=== PATIENT | female | born 1990 | race African-American/Black ===

== ENCOUNTER 2017-05-20 22:38 | Outpatient (CLI) | payer SELFPAY ==
[2017-05-20 23:22] LABS: APPEARANCE,URINE SLIGHTLY-CLOUDY; BILIRUBIN,URINE NEGATIVE (NEGATIVE); COLOR,URINE YELLOW; GLUCOSE, URINE NEGATIVE (NEGATIVE); KETONES,URINE NEGATIVE (NEGATIVE); LEUKOCYTE ESTERASE,URINE LARGE (NEGATIVE); NITRITE,URINE NEGATIVE (NEGATIVE); PROTEIN,URINE NEGATIVE (NEGATIVE); URINE SPECIFIC GRAVITY 1.025
[2017-05-20 23:42] LABS: URINE AMPHETAMINES SCREEN NEGATIVE; URINE BARBITURATES SCREEN NEGATIVE; URINE BENZODIAZEPINES SCREEN NEGATIVE; URINE COCAINE SCREEN NEGATIVE; URINE MARIJUANA (THC) SCREEN NEGATIVE; URINE METHADONE SCREEN NEGATIVE; URINE PHENCYCLIDINE SCREEN NEGATIVE
[2017-05-20 23:59] LABS: BACTERIA (WET MOUNT) 4+ BACTERIA SEEN; EPITHELIALS (WET MOUNT) 3+ EPITHELIALS SEEN; RBCS (WET MOUNT) RARE RBCS SEEN; T.VAGINALIS (WET MOUNT) TRICHOMONAS SEEN; WBCS (WET MOUNT) 4+ WBCS SEEN; YEAST (WET MOUNT) NO YEAST SEEN
[2017-05-21 01:24] LABS: CHLAM PCR NOT DETECTED (NOT DETECT); GON PCR NOT DETECTED (NOT DETECT)
--- NOTE | 2017-05-21 01:51 | RADIOLOGY REPORT (SQ) ---
EXAM DESCRIPTION: U/S OB LIMITED CLINICAL HISTORY: 26 years, Female, cervical length, abd pain at 24 weeks COMPARISON: 08/26/2014 LIMITATIONS: Targeted for requested obstetrical parameters. FINDINGS: Cervical length: 4.6 cm. Closed appearance. position: Breech. heart rate: 140 bpm IMPRESSION: Limited exam for requested obstetrical parameters.
[2017-05-21] MEDS ORDERED: METRONIDAZOLE 500 MG TABLET PO ONE (01:53)
[2017-05-21] MEDS ORDERED: METRONIDAZOLE 500 MG TABLET ONE (01:56)
== END 2017-05-21 02:14 | disposition home or self-care (01) ==
LOC: EEVIPCON 22:38 → LC 22:38
PROVIDERS: ATTEND Student in an Organized Health Care Education/Training Program
PROC: 4A1HXCZ Monitoring of Products of Conception, Cardiac Rate, External Approach (ICD-10-PCS; principal; 2017-05-20)
DX: O47.02 False labor before 37 completed weeks of gestation, second trimester (principal); O98.812 Other maternal infectious and parasitic diseases complicating pregnancy, second trimester; A59.9 Trichomoniasis, unspecified; Z3A.24 24 weeks gestation of pregnancy
CPT/HCPCS: 76815; 80307; 81001; 87086; 87210; 87491; 87591